=== PATIENT | male | born 1965 | race African-American/Black ===

== ENCOUNTER 2018-03-02 01:20 | Emergency (ER) | payer MEDICAID, SELFPAY ==
[2018-03-02 01:22] VITALS: BP 124/87; PULSE 83; RESP 18; TEMP 37; O2SAT 97; BMI 23.7
--- NOTE | 2018-03-02 02:50 | ED.DEP ---
ED Disposition - Plan for ED Patient: Chief Complaint: Laceration Instructions: ED Laceration All Referrals: Lavon Cadena MD [Primary Care Provider] -
[2018-03-02 02:58] VITALS: PULSE 60; RESP 12
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
== END 2018-03-02 02:59 | disposition home or self-care (01) ==
PROVIDERS: Emergency Provider Emergency Medicine; Family Provider Family Medicine; PCP Family Medicine
DX: S41.111A Laceration without foreign body of right upper arm, initial encounter (principal); X99.1XXA Assault by knife, initial encounter; Y93.89 Activity, other specified; Y92.009 Unspecified place in unspecified non-institutional (private) residence as the place of occurrence of the external cause; Y99.8 Other external cause status
CPT/HCPCS: 12002; 99284

== ENCOUNTER 2018-03-06 08:18 | Emergency (ER) | payer MEDICAID, SELFPAY ==
[2018-03-06 08:19] VITALS: BP 120/74; PULSE 76; RESP 16; TEMP 36.5; O2SAT 99; BMI 24.1
--- NOTE | 2018-03-06 08:28 | ED.DCSUM_ITS ---
- ER Visit Summary Date of Service: 03/06/18 Chief Complaint: Wound check History of Present Illness: The patient is a 53 M who sustained a laceration over his right arm 4 days ago and had it sutured in the emergency department resents with dehiscence that he noticed this morning. Physical Examination: Otherwise normal exam, his laceration is intact except for one edge which has 1 suture missing, underneath there is pink granulation tissue. There is no surrounding erythema or calor or any other source of infection. Emergency Department Course and Treatment: I discussed with the patient, at this time I cannot put another suture since the tissue underneath is granulating, he understands this wound care was explained we will re-bandages wound. He will be discharged in stable condition. Impression: Wound check Wound dehiscence This note was generated with [employer] dictation software. It may contain incorrect words, spelling, and punctuation that were not noted in review of the chart prior to signing ED Disposition - Plan for ED Patient: Disposition: Home or Assisted Living Chief Complaint: Laceration Instructions: Wound Care Referrals: Lavon Cadena MD [Primary Care Provider] - 2 Days for wound check
[2018-03-06 08:59] VITALS: BP 135/77; PULSE 82; RESP 16; O2SAT 98
== END 2018-03-06 08:59 | disposition home or self-care (01) ==
LOC: ED 08:52
PROVIDERS: Emergency Provider Emergency Medicine; Family Provider Family Medicine; PCP Family Medicine
DX: T81.33XA Disruption of traumatic injury wound repair, initial encounter (principal)
CPT/HCPCS: 99282

== ENCOUNTER 2018-03-11 09:46 | Emergency (ER) | payer MEDICAID, SELFPAY ==
[2018-03-11 09:46] VITALS: BP 111/75; PULSE 72; RESP 16; TEMP 36.6; O2SAT 98; BMI 23.7
--- NOTE | 2018-03-11 10:34 | ED.DCSUM_ITS ---
- ER Visit Summary Date of Service: 03/11/18 Chief Complaint: Suture removal History of Present Illness: The patient is a 53 M who presents for suture removal. Patient states he had sutures placed in a right arm laceration approximately 10 days ago. Patient states some of the sutures broke and came out by themselves. Patient denies any redness or swelling. Patient denies any fevers or chills. Patient states his tetanus is up-to-date. Physical Examination: Vital signs are stable. Patient is afebrile. Patient is in no acute distress. Skin is warm and dry. There is a healing laceration over the lateral aspect of the right upper arm. There is no discharge or drainage. There is no erythema or warmth noted. There are [address] Neurovascular exam is intact. The remaining physical exam is within normal limits. Emergency Department Course and Treatment: Sutures were removed without difficulty. Bacitracin dressing was applied. Patient was instructed to follow- up with his primary care physician in 7-10 days. Patient understood and was agreeable with the plan. All questions were answered. Disposition: Discharged home Impression: Healing laceration right arm This note was generated with [employer] dictation software. It may contain incorrect words, spelling, and punctuation that were not noted in review of the chart prior to signing ED Disposition - Plan for ED Patient: Disposition: Home or Assisted Living Chief Complaint: Wound Check Diagnosis: Visit for suture removal Instructions: ED Wound Check Sutr Remove No Infec Referrals: Lavon Cadena MD [Primary Care Provider] -
== END 2018-03-11 11:04 | disposition home or self-care (01) ==
PROVIDERS: Emergency Provider Emergency Medicine; Family Provider Family Medicine; PCP Family Medicine
DX: S41.111D Laceration without foreign body of right upper arm, subsequent encounter (principal); W26.9XXD Contact with unspecified sharp object(s), subsequent encounter; Z48.02 Encounter for removal of sutures; Z79.891 Long term (current) use of opiate analgesic; Z79.899 Other long term (current) drug therapy
CPT/HCPCS: 99283

== ENCOUNTER 2018-04-05 08:20 | Emergency (ER) | payer MEDICAID, SELFPAY ==
[2018-04-05 08:21] VITALS: BP 116/75; PULSE 94; RESP 16; TEMP 36.4; O2SAT 98; BMI 23.0
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
--- NOTE | 2018-04-05 08:51 | ED.DEP ---
ED Disposition - Plan for ED Patient: Disposition: Home or Assisted Living Chief Complaint: Laceration Instructions: ED Laceration All Referrals: Lavon Cadena MD [Primary Care Provider] -
[2018-04-05 08:57] VITALS: BP 118/76; PULSE 82; RESP 16; O2SAT 98
== END 2018-04-05 09:00 | disposition home or self-care (01) ==
PROVIDERS: Emergency Provider Emergency Medicine; Family Provider Family Medicine; PCP Family Medicine
DX: S71.012A Laceration without foreign body, left hip, initial encounter (principal); M19.90 Unspecified osteoarthritis, unspecified site; Z72.0 Tobacco use; Z79.899 Other long term (current) drug therapy; X99.1XXA Assault by knife, initial encounter; Y93.89 Activity, other specified; Y92.89 Other specified places as the place of occurrence of the external cause; Y99.8 Other external cause status
CPT/HCPCS: 12001; 99282

== ENCOUNTER 2018-04-15 19:12 | Emergency (ER) | payer MEDICAID, SELFPAY ==
[2018-04-15 19:13] VITALS: BP 115/75; PULSE 90; RESP 16; TEMP 36.3; O2SAT 96; BMI 24.1
[2018-04-15 19:24] VITALS: BP 120/74; PULSE 85; RESP 14; O2SAT 98
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
[2018-04-15 19:48] VITALS: RESP 18
== END 2018-04-15 19:48 | disposition home or self-care (01) ==
LOC: ED 19:45
PROVIDERS: Emergency Provider Emergency Medicine; Family Provider Family Medicine; PCP Family Medicine
DX: S31.114D Laceration without foreign body of abdominal wall, left lower quadrant without penetration into peritoneal cavity, subsequent encounter (principal); Z48.02 Encounter for removal of sutures; F32.9 Major depressive disorder, single episode, unspecified; Z72.0 Tobacco use; Z79.899 Other long term (current) drug therapy; X99.9XXD Assault by unspecified sharp object, subsequent encounter
CPT/HCPCS: 99282

== ENCOUNTER 2018-07-05 07:11 | Emergency (ER) | payer MEDICAID, SELFPAY ==
[2018-07-05 07:11] VITALS: BP 114/67; PULSE 92; RESP 18; TEMP 36.6; O2SAT 96; BMI 24.1
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
--- NOTE | 2018-07-05 07:56 | ED.RN ---
PT ELOPED FROM ER, DISPATCH NOTIFIED
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
== END 2018-07-05 07:56 | disposition left against medical advice (07) ==
LOC: ED 08:23
PROVIDERS: Emergency Provider Emergency Medicine; Family Provider Family Medicine; PCP Family Medicine
DX: R45.850 Homicidal ideations (principal)

== ENCOUNTER 2018-09-29 12:14 | Emergency (ER) | payer MEDICAID, SELFPAY ==
[2018-09-29 12:15] VITALS: BP 124/74; PULSE 97; RESP 17; TEMP 37; O2SAT 98; BMI 23.8
--- NOTE | 2018-09-29 14:55 | ED.RN ---
PT AMBULATES MULTIPLE TIMES FROM HALLWAY CHAIR OUT TO TRIAGE.
--- NOTE | 2018-09-29 14:55 | ED.VISSUMM ---
- ER Visit Summary Date of Service: 09/29/18 Chief Complaint: Back pain shoulder pain History of Present Illness: The patient is a 53 M presents with back pain and right shoulder pain for about 2 months. He could not follow-up with his primary care physician he does not have an appointment for another month. There is no fever chills no chest pain shortness of breath. Physical Examination: Otherwise unremarkable exam, his right shoulder shows tenderness over the supraspinatus region with tenderness with abduction greater than 90 degrees, his back pain is in the back of the shoulder, reproducible. Neurovascularly he is intact Patient will be treated with analgesics, muscle relaxant and discharged to follow-up with his PCP, he may need physical rehab Impression: [] Rotator cuff tendinitis Back pain This note was generated with [employer] dictation software. It may contain incorrect words, spelling, and punctuation that were not noted in review of the chart prior to signing ED Disposition - Plan for ED Patient: Disposition: Home or Assisted Living Instructions: ED Neck Back Pain General, Understanding Rotator Cuff Injuries Prescriptions: Naproxen [Naprosyn] 500 mg PO BID PRN #20 tab Tizanidine HCl 4 mg PO BID PRN #20 tab PRN Reason: Muscle Spasm Referrals: Lavon Cadena MD [Primary Care Provider] -
[2018-09-29 15:28] VITALS: PULSE 98; RESP 18
== END 2018-09-29 15:28 | disposition home or self-care (01) ==
PROVIDERS: Emergency Provider Emergency Medicine; Family Provider Family Medicine; PCP Family Medicine
DX: M75.81 Other shoulder lesions, right shoulder (principal); M54.89 Other dorsalgia; M06.9 Rheumatoid arthritis, unspecified; Z72.0 Tobacco use; Z79.899 Other long term (current) drug therapy
CPT/HCPCS: 99282

== ENCOUNTER → 2018-10-16 14:11 | Outpatient (CLI) | payer MEDICAID, SELFPAY ==
[2018-09-29 12:15] VITALS: BMI 23.8
--- NOTE | 2018-10-16 14:12 | RAD_ITS ---
STUDY: X-RAY - RIGHT SHOULDER REASON FOR EXAM: Male, 53 years old. Pain TECHNIQUE: 4 view(s) of the shoulder. COMPARISON: None. FINDINGS: There is mild degenerative arthrosis of the glenohumeral articulation. Normal acromioclavicular joint. Normal acromion. Normal humeral head and visualized proximal humerus. The soft tissue structures are unremarkable. Normal visualized pulmonary apex. RAD/Shoulder min 2 Views IMPRESSION: Glenohumeral arthrosis. Electronically Signed: Dheeraj Atkins MD at 16:08 EST , Service support ,
== END ==
PROVIDERS: Family Provider Family Medicine; PCP Family Medicine; Referring Provider Physician Assistant; Visit Provider Physician Assistant
DX: M25.511 Pain in right shoulder (principal)
CPT/HCPCS: 73030

== ENCOUNTER 2019-04-06 13:29 | Emergency (ER) | payer MEDICAID, SELFPAY ==
[2018-10-16 15:53] VITALS: BMI 23.8
[2019-04-06 13:30] VITALS: BP 96/81; PULSE 70; RESP 17; TEMP 36.7; O2SAT 98; BMI 24.5
--- NOTE | 2019-04-06 14:37 | RAD_ITS ---
STUDY: X-RAY - RIGHT SHOULDER REASON FOR EXAM: Male, 54 years old. Pain following injury. TECHNIQUE: 4 view(s) of the shoulder. COMPARISON: None. FINDINGS: Normal glenohumeral articulation. There is minimal widening of the AC joint suggesting a Type I acromioclavicular joint separation. Normal acromion. Normal humeral head and visualized proximal humerus. The soft tissue structures are unremarkable. Normal visualized pulmonary apex. RAD/Shoulder min 2 Views IMPRESSION: Type I AC joint injury. Electronically Signed: Leonardo Miranda, at 15:30 EDT , Service support ,
--- NOTE | 2019-04-06 14:43 | ED.VIS.GEN ---
History of Present Illness Chief Complaint: Upper Extremity Injury Informant: Patient Onset: Weeks Context: Gradual Onset Timing: Continuous Current Severity: Moderate Maximum Severity: Moderate Narrative: The patient presents to the emergency department with increasing right shoulder pain. Patient states he has a rotator cuff tear. He has seen orthopedics, had an MRI, and done physical therapy. He states that he is been on a muscle relaxer and gabapentin. Over the past month is gotten worse. He states over the past week, he had increasing pain and spasm mostly in his upper back. He states it hurts to move the shoulder and lifted over his head. He denies any definitive trauma. He denies any fevers or chills. He is otherwise been in his normal state of health. Prior similar symptoms: Yes Recent Illness/Hospitalization: No Past Medical History - Allergies and Home Meds Allergies/Adverse Reactions: Allergies No Known Allergies Allergy (Verified 04/06/19 13:30) Primary Care Physician: Phillip Tompkins MD [Primary Care Provider] - Prior records reviewed: Yes Surgical History: - - Spine surgery Smoking Status: Current some day smoker Alcohol: None - Family History Maternal Family History: Reports: Hypertension Review of Systems General: Denies: Chills, Fever, Sweats Eyes: Denies: Visual changes - bilaterally, Diplopia ENT: Denies: Rhinorrhea, Sore throat Cardiovascular: Denies: Chest pain, Palpitations Respiratory: Denies: Dyspnea, Cough, Dyspnea on exertion Gastrointestinal: Denies: Abdominal pain, Nausea, Vomiting, Diarrhea, Melena, Hematochezia Genitourinary: Denies: Dysuria, Hematuria, Frequency Musculoskeletal: Reports: Myalgias, Arthralgias. Denies: Back pain, Extremity Pain Skin: Denies: Rash, Wounds Neurological: Denies: Headache, Weakness, Numbness Physical Exam Vital Signs/Narrative: Vital Signs Temp Pulse Resp BP Pulse Ox 04/06/19 13:30 98.1 F 70 17 96/81 H 98 Inital Vital Signs reviewed: Yes General: Well nourished, Well developed, No Acute Distress Head: Normocephalic, Atraumatic Eyes: Perrl, EOMI ENT: Moist mucous membranes, No rhinorrhea Neck: Supple, Nontender Cardiovascular: Regular rate, Regular rhythm, No murmurs Respiratory: No distress, CTA bilaterally, Chest nontender Abdomen: Soft, Nontender, Nondistended, Normal bowel sounds Back: Nontender, Normal Inspection Extremities: Nontender, No edema Skin: Normal color, No rash Neurological: Alert, Oriented x3, Cranial nerves II-XII grossly intact, Normal Strength, Normal Sensation Psychological: Normal affect, Normal Mood Diagnostic/Tx/Re-eval Clinical Impression(s) from Imaging Studies Shoulder X-Ray 04/06/19 14:37 IMPRESSION: Type I AC joint injury. Electronically Signed: Leonardo Miranda, at 15:30 EDT , Service support , - Medical Decision Making Patient presents with increasing right shoulder pain. It is mostly in the posterior scapular muscles. My suspicion is that he is using these muscles to move the shoulder other than his rotator cuff given his underlying injury. His pulses are normal. His sensation is intact. I did repeat plain films which were unremarkable. At this point, the patient is already on antispasmodics. We will give him a short course of anti-inflammatories and outpatient orthopedic follow-up. Impression 1. Right shoulder strain ED Disposition - Plan for ED Patient: Instructions: Shoulder Sprain Prescriptions: Naproxen [Naprosyn] 500 mg PO BID #14 tab Prescription Printed Referrals: Phillip Tompkins MD [Primary Care Provider] -
[2019-04-06] MEDS: HYDROcodone Bitartrate/Apap 5/325 Tablet PO (15:37)
[2019-04-06 16:27] VITALS: RESP 16
--- NOTE | 2019-04-06 16:27 | ED.RN ---
REVIEWED D/C INSTRUCTIONS, FOLLOW UP CARE, PRESCRIPTION, AND S/S THAT WOULD WARRANT A RETURN TO THE ED WITH PT. PT VERBALIZED AN UNDERSTANDING AND DENIES FURTHER QUESTIONS FOR THIS RN. PT SKIN WARM/DRY, RESP EVEN AND UNLABORED, PT A&O X 3, NO DISTRESS NOTED. PT AMBULATED OUT OF ED, GAIT STEADY.
== END 2019-04-06 16:31 | disposition home or self-care (01) ==
LOC: ED 15:28
PROVIDERS: Emergency Provider Emergency Medicine; Family Provider Family Medicine; PCP Family Medicine
DX: S46.911A Strain of unspecified muscle, fascia and tendon at shoulder and upper arm level, right arm, initial encounter (principal); X58.XXXA Exposure to other specified factors, initial encounter; Y93.9 Activity, unspecified; Y92.9 Unspecified place or not applicable; F17.200 Nicotine dependence, unspecified, uncomplicated
CPT/HCPCS: 73030; 99283

== ENCOUNTER 2019-05-04 12:23 | Outpatient (RCR) | payer MEDICAID, SELFPAY ==
[2019-05-01 12:46] VITALS: BMI 24.5
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
--- NOTE | 2019-05-28 10:50 | HP.PT.NRP ---
HP - Discharge Summary (1) - Patient Information PURA MARTINEZ was seen in my office for initial evaluation on 05/04/19. The following Plan of Care was established for this patient: Initial Frequency: 2x /Week Initial Duration: 4 Weeks - Anticipated Interventions Patient/Client Instruction: Educate patient on: Condition, Plan of Care For the Purpose of:: To decrease pain Therapeutic Exercise to Include: Strength training, Endurance training, Body mechanics, Postural training, Active ROM, Scapular Strength/Stabilization For the Purpose of:: To improve performance and independence with ADL's Cryotherapy (ice pack, ice massage): Yes Thermo therapy (hot pack): Yes Ultrasound (thermal/non thermal): Yes This patient was last seen in our office . Pertinent comments regarding their Physical therapy will appear below: Pt. has not attended PT since initial evaluation, appropriate for D/C & return to MD for further evaluation as needed. At this point I will be discontinuing this patient from physical therapy. I would be happy to see this patient again in the future if found appropriate by the physician. Thank you! CRISTIANE CoughlinT
== END 2019-05-04 19:00 | disposition home or self-care (01) ==
LOC: PT 12:23
PROVIDERS: Family Provider Family Medicine; PCP Family Medicine; Visit Provider Physician Assistant
DX: M75.21 Bicipital tendinitis, right shoulder (principal)
CPT/HCPCS: 97035; 97161

== ENCOUNTER 2019-08-11 11:11 | Observation (INO) | payer MEDICAID, SELFPAY ==
[2019-05-01 12:46] VITALS: BMI 24.5
[2019-08-11 11:12] VITALS: BP 128/84; PULSE 63; RESP 18; TEMP 36.6; O2SAT 97; BMI 24.7
--- NOTE | 2019-08-11 11:42 | EKG12_ITS ---
Test Reason : ABD PAIN Blood Pressure : / mmHG Vent. Rate : 064 BPM Atrial Rate : 064 BPM P-R Int : 144 ms QRS Dur : 088 ms QT Int : 412 ms P-R-T Axes : 036 -07 029 degrees QTc Int : 425 ms Normal sinus rhythm Normal ECG Confirmed by ACE HAGAN, OMID ([id number]), makeup editor SHEREEN WILLIAMSON ([id number]) on 08/17/2019 11:50:45 AM Referred By: Brian Ohara Confirmed By:SUMMER BELLO MD
--- NOTE | 2019-08-11 11:43 | ED.DCSUM_ITS ---
History of Present Illness Chief Complaint: Abd Pain Informant: Patient - Abdominal Pain/Flank Pain Onset: Today Context: Sudden Onset Timing: Continuous Quality: Aching Location: Epigastric Worsened by: Nothing Relieved by: Nothing - Nausea/Vomiting/Emesis GI Symptom: Nausea. Negative for: Vomiting - Diarrhea/Melena/Hematochezia GI Symptom: Negative for: Diarrhea, Melena, Hematochezia Narrative: Patient is a 54-year-old male with history of rheumatoid arthritis, hyperlipidemia and degenerative disc disease presenting with epigastric abdominal pain. He states around 3 AM at woke him up from sleep. He states it is in his epigastric and periumbilical region. He denies any radiation. He had associated nausea but was unable to vomit. He states his bowel movements been normal. The pain is been constant and he decided come to the emergency room. He did not try any medications at home for the symptoms. He notes that he had some fried gizzards left out that he ate at 2 AM. He is not sure if this is what caused his symptoms. He did eat the fried desserts for dinner as well. He states once he had pain like this in the past and he thought it was from eating greasy ribs. This was years ago. He states he is never had endoscopy. He states he had normal bowel movements and denies any diarrhea or melena. He does have some pain in his left upper quadrant/lower ribs. He denies any associated chest pain. He denies associated shortness of breath or difficulty breathing. He denies any urinary symptoms. He denies any other complaints at this time. Patient does smoke cigarettes regularly and drinks about 3 tall boys every few days. He denies any liquor use. He did not drink last night. He denies any drug use. He denies any other complaints at this time. Past Medical History - Allergies and Home Meds Allergies/Adverse Reactions: Allergies No Known Allergies Allergy (Verified 08/11/19 11:15) Past Medical History: - - RA, DDD Surgical History: - - Spine surgery Smoking Status: Current some day smoker - Family History Maternal Family History: Reports: Hypertension Review of Systems General: Denies: Chills, Fever, Sweats Eyes: Denies: Visual changes - bilaterally, Diplopia ENT: Denies: Rhinorrhea, Sore throat Cardiovascular: Denies: Chest pain, Palpitations Respiratory: Denies: Dyspnea, Cough, Dyspnea on exertion Gastrointestinal: Reports: Abdominal pain, Nausea. Denies: Vomiting, Diarrhea, Melena, Hematochezia Genitourinary: Denies: Dysuria, Hematuria, Frequency Musculoskeletal: Denies: Back pain, Extremity Pain Skin: Denies: Rash, Wounds Neurological: Denies: Headache, Weakness, Numbness Physical Exam Vital Signs/Narrative: Vital Signs Temp Pulse Resp BP Pulse Ox 08/11/19 11:12 97.9 F 63 18 128/84 H 97 Inital Vital Signs reviewed: Yes General: Well nourished, Well developed, No Acute Distress Head: Normocephalic, Atraumatic Eyes: Perrl, EOMI ENT: Moist mucous membranes, No rhinorrhea Neck: Supple, Nontender Cardiovascular: Regular rate, Regular rhythm, No murmurs Respiratory: No distress, CTA bilaterally, Chest nontender Abdomen: Soft, Nondistended, Normal bowel sounds, Tender - RUQ, epigastric, Moise's sign Back: Nontender, Normal Inspection Extremities: Nontender, No edema Skin: Normal color, No rash Neurological: Alert, Oriented x3, Cranial nerves II-XII grossly intact, Normal Strength, Normal Sensation Psychological: Normal affect, Normal Mood Diagnostic/Tx/Re-eval US: RUQ, - - Acute cholecystitis Clinical Impression(s) from Imaging Studies Gallbladder Ultrasound 08/11/19 12:19 IMPRESSION: Multiple gallstones. There is a 2.1 cm 1.4 cm x 1.6 cm nonmobile stone in the neck of the gallbladder. Thickening gallbladder wall. Small amount of pericholecystic fluid. Electronically Signed: Leonardo Miranda, at 14:19 EST , Service support , Laboratory Data 08/11/19 08/11/19 08/11/19 11:25 11:25 12:40 WBC 6.8 RBC 4.87 Hgb 14.4 Hct 43.0 MCV 88.3 MCH 29.6 MCHC 33.5 RDW Std Deviation 46.2 H RDW Coeff of Magui 14.3 Plt Count 215 MPV 9.1 Immature Gran % (Auto) 0.300 Neut % (Auto) 72.8 H Lymph % (Auto) 19.6 [place] % (Auto) 4.3 Eos % (Auto) 2.9 Baso % (Auto) 0.1 Absolute Neuts (auto) 4.9 Absolute Lymphs (auto) 1.33 Nucleated RBC % 0 Sodium 138 Potassium 4.2 Chloride 107 Carbon Dioxide 29.0 Anion Gap 2 L BUN 23 H Creatinine 1.07 Estim Creat Clear Calc 85.62 Est GFR (MDRD) Af Amer 92 Est GFR (MDRD) Non-Af 76 BUN/Creatinine Ratio 21.5 H Glucose 106 Calcium 8.7 Total Bilirubin 0.60 Direct Bilirubin 0.11 AST 24 ALT 34 Alkaline Phosphatase 60 Troponin I < 0.015 Total Protein 8.0 Albumin 3.9 Globulin 4.1 Lipase 69 L Urine Color Yellow Urine Clarity Sl. Cloudy Urine pH 6.0 Ur Specific [place] 1.010 Urine Protein Negative Urine Glucose (UA) Normal Urine Ketones Negative Urine Occult Blood Negative Urine Nitrite Negative Urine Bilirubin Negative Urine Urobilinogen Normal Ur Leukocyte Esterase Negative Urine RBC 0 SEEN Urine WBC 0 SEEN Ur Squamous Epith Cells 0-5 SEEN Urine Bacteria 0 SEEN Urine Mucus 0 SEEN - Rhythm Strip Rhythm Strip: Sinus Rhythm Rate: 64 Ectopy: None - EKG Initial EKG Interpretation: Sinus Rhythm, - - Normal sinus rhythm at a rate of 64 Normal intervals Normal axis Normal ST segments - Medical Decision Making Patient is evaluated for epigastric pain that started around 3 AM. Is been quite constant. He has associated nausea and anorexia. Lab work is largely unremarkable. Because it in his epigastric region I did obtain EKG and troponin which are grossly normal. As patient had a Moise's sign on exam we did get an ultrasound to check for quadrant. This did show findings concerning for acute cholecystitis. Discussed with Dr. Oahra who admit the patient and evaluate for surgical management. Patient did require 2 doses of IV morphine in the emergency room for pain control. He is given a liter of fluid and started on maintenance fluid. Patient is stable while in the emergency room and stable for the general medical floor at time of disposition. ED Disposition - Plan for ED Patient: Diagnosis: Acute cholecystitis
[2019-08-11 11:53] LABS: Absolute Lymphocyte Count 1.33 X10^3/uL (0.83-4.51); Absolute Neutrophil Count 4.9 X10^3/uL (2.0-7.7); Basophil# 0.01 X10^3/uL; Basophil% 0.1 % (0-1); Eosinophils% 2.9 % (0-5); Hemoglobin 14.4 g/dL (13.0-16.5); Lymphocyte # 1.33 X10^3/ul (4.0); Lymphocyte % 19.6 % (19-41); Mean Corp Hgb Conc 33.5 g/dL (32-36); Mean Corpuscular Hgb 29.6 pg (27.0-32.0); Mean Corpuscular Volume 88.3 fL (80-94); Mean Platelet Vol. 9.1 fl (6.2-12.0); Monocyte# 0.29 X10^3/uL; Monocyte% 4.3 % (0-10); NRBC Flagged by Analyzer 0 % (0-5); Neutrophil # 4.94 X10^3/uL (2.7-7.7); Neutrophil % 72.8 % (47-70); Platelet Count 215 K/mm3 (150-450); RBC Distribution Width CV 14.3 % (11.6-14.6); RBC Distribution Width SD 46.2 fl (35.1-43.9); Red Blood Count 4.87 M/mm3 (4.6-6.2); White Blood Count 6.8 K/mm3 (4.4-11.0)
[2019-08-11] MEDS: 0.9% Normal Saline 1,000 ML 1000 ML IV (11:54)
[2019-08-11] MEDS: Morphine 4 MG/ML Syringe IV ×2 (11:55→14:50)
[2019-08-11] MEDS: Ondansetron 4 MG/2 ML Vial IV (11:55)
[2019-08-11 12:07] LABS: AST(SGOT) 24 U/L (15-37); Alanine Aminotransfer ALT/SGPT 34 U/L (16-61); Albumin, Serum 3.9 g/dL (3.2-5.0); Alkaline Phosphatase 60 U/L (45-117); Anion Gap 2 (5-15); BUN 23 mg/dL (7-18); BUN/Creat Ratio 21.5 RATIO (10-20); Bilirubin, Direct 0.11 mg/dL (0.00-0.30); Calcium,Total 8.7 mg/dL (8.5-10.1); Chloride 107 mmol/L (98-107); Creatinine, Serum 1.07 mg/dL (0.70-1.30); EST Glomerular Filtration Rate 76 mL/min (>60); Est Glom Filt Rate - Afr Amer 92 mL/min (>60); Estimated Creatinine Clearance 85.62 ml/min; Globulin 4.1 g/dL (2.2-4.2); Glucose 106 mg/dL (74-106); Lipase 69 U/L (73-393); Potassium 4.2 mmol/L (3.5-5.1); Sodium Level 138 mmol/L (136-145)
--- NOTE | 2019-08-11 12:19 | US_ITS ---
STUDY: ABDOMINAL ULTRASOUND - RIGHT UPPER QUADRANT REASON FOR VISIT: Male, 54 years old abdominal pain. TECHNIQUE: Ultrasound evaluation of the right upper quadrant was performed with real-time and static greenwood-scale imaging. TECHNICAL QUALITY: Limited. Examination limited by bowel gas. COMPARISON: None. FINDINGS: Liver: The liver measures 14.4 cm. There is normal echogenicity of the liver. The bile ducts are within normal limits. There is hepatic color flow. The direction of portal flow is hepatopetal. There is no demonstrated mass lesion. Gallbladder: Mildly distended gallbladder. The gallbladder wall is thickened and measures 5.5 mm. There is a positive sonographic Moise''s sign. There is pericholecystic fluid. There are multiple echogenic structures within the gallbladder, consistent with multiple gallstones. There is a 2.1 cm x 1.4 cm x 1.6 cm stone in the neck of the gallbladder. Common Bile Duct (C.B.D.): The common bile duct measures 2.8 mm. Pancreas: Normal size of the head, body and tail of the pancreas. There is normal echogenicity of the pancreas. There is no demonstrated pancreatic mass or cyst. Right Kidney: Normal size of the right kidney. The right kidney measures 9.3 cm x 6 cm x 6.2 cm. Normal renal cortex. The right cortex measures 1.8 cm. There is no demonstrated renal mass or cyst. There is no right hydronephrosis. US/Gallbladder IMPRESSION: Multiple gallstones. There is a 2.1 cm 1.4 cm x 1.6 cm nonmobile stone in the neck of the gallbladder. Thickening gallbladder wall. Small amount of pericholecystic fluid. Electronically Signed: Leonardo Miranda, at 14:19 EST , Service support ,
[2019-08-11 12:47] LABS: Bacteria 0 SEEN /hpf (None Seen); Mucous, Urine 0 SEEN /hpf (<or=2+); Red Blood Cells-Urine 0 SEEN /hpf (0-5); White Blood Cells 0 SEEN /hpf (0-5)
[2019-08-11 12:51] LABS: Color, Urine Yellow (Yellow); Glucose, Dipstick Normal (Normal); Ketone-Dipstick Negative (Negative); Leukocyte Esterase-Dipstick Negative /ul (Negative); Nitrite-Dipstick Negative (Negative); Occult Blood-Urine Negative /ul (Negative); Protein-Dipstick Negative (Negative); Urine Bilirubin Dipstick Negative (Negative); Urine Clarity Sl. Cloudy (Clear); Urine Urobilinogen Normal (Normal)
[2019-08-11 12:57] LABS: Squamous Epithelial Cells - UA 0-5 SEEN /hpf (0-5)
[2019-08-11 14:29] VITALS: BP 132/98; PULSE 75; RESP 16; O2SAT 99
--- NOTE | 2019-08-11 14:55 | NURSING ---
MED SURG OBS ACUTE CHOLECYSTITIS CHALO
[2019-08-11] MEDS: 0.9% Normal Saline 1,000 ML 150 ML IV (15:18)
[2019-08-11 15:19] VITALS: BMI 24.7
--- NOTE | 2019-08-11 17:10 | NURSING ---
DR ISABEL IN ROOM
[2019-08-11 17:48] VITALS: BMI 24.8
[2019-08-11 17:49] VITALS: BP 113/74; PULSE 61; RESP 16; TEMP 36.5; O2SAT 97
[2019-08-11] MEDS: Lactated Ringers 1,000 ML 100 ML IV (17:55)
[2019-08-11 18:02] LABS: Amphetamine Urine VISTA NEGATIVE (<1000 ng/mL); Barbiturate Urine VISTA NEGATIVE (< 200 ng/mL); Benzodiazepine Urine VISTA NEGATIVE (< 200 ng/mL); Cocaine Urine VISTA POSITIVE (< 300 ng/mL); Ecstacy Urine VISTA NEGATIVE (< 500 ng/mL); Methadone Urine VISTA NEGATIVE (< 300 ng/mL); PCP Urine VISTA NEGATIVE (< 25 ng/mL); THC Urine VISTA NEGATIVE (< 50 ng/mL); Vista UDS pH Range 6
--- NOTE | 2019-08-11 18:03 | HP.PCM_ITS ---
History of Present Illness Date of Admission: 08/11/19 Chief Complaint: upper abdominal pain The patient is a 54 year old M rated fatty meal last night and awoke at 2 AM with severe epigastric and right upper quadrant pain. The pain was waxing and waning and persisted. he presented to [facility] emergency room with these complaints. laboratory studies demonstrated normal white blood cell count with a mild left shift. Chemistry panel was unremarkable. right upper quadrant ultrasound demonstrated a mildly distended gallbladder with multiple gallstones mild pericholecystic fluid and a positive Moise sign. The common bile duct was normal at 2.8 mm. I was contacted for acute cholecystitis. The patient has no sitting past medical history.he has a history of an anterior cervical fusion in 2004. The patient notes no allergies to medications. he takes Neurontin minocycline Zoloft and trazodone. He admits to smoking marijuana and noted that he smoked marijuana which was lysed with cocaine 2 days previously.. Past Medical History Past Medical History (Chronic Problems): Chronic Problems Dyslipidemia (Chronic) Allergies No Known Allergies Allergy (Verified 08/11/19 11:15) Home Medications: Ambulatory Orders Medication Instructions Recorded Gabapentin [Neurontin] 300 mg PO TIDCM 02/23/15 Sertraline HCl 100 mg PO DAILY 08/11/19 traZODone [Desyrel] 50 mg PO QHS 08/11/19 Surgical History: - - Spine surgery Psychiatric History: No pertinent psych hx Smoking Status: Current some day smoker Tobacco Use: Cigarettes - *Family History Maternal History Items: Hypertension Review of Systems Constitutional: Denies: Chills, Fever, Weight Change HEENT: Denies: Head Aches, Sinus Congestion, Sinus Drainage Cardiovascular: Denies: Chest Pain, Palpitations Respiratory: Denies: Cough, Shortness of breath at rest, Sputum production Gastrointestinal: Reports: Abdominal Pain. Denies: Nausea, Vomiting Genitourinary: Denies: Dysuria Musculoskeletal: Denies: Joint Pain, Joint Tenderness Skin: Denies: Rash, Wounds Neurological: Denies: Numbness, Tingling, Focal weakness Psychiatric: Denies: Anxiety, Depression, Homicidal Ideations, Suicidal Ideations Hematologic/ Lymphatic: Denies: Easy Bruising, Easy Bleeding VTE Information - Inpt Only VTE Present on Admission: No VTE Mechan Device Prophylaxis: SCD's Patient Problems: Active and Suspected Problems Acute cholecystitis (Acute) - Physical Exam Vitals/I&O's: Vital Signs Temp Pulse Resp BP Pulse Ox 97.7 F L 61 16 113/74 97 08/11/19 17:49 08/11/19 17:49 08/11/19 17:49 08/11/19 17:49 08/11/19 17:49 Oxygen Delivery Method Room Air Weight: 83.098 kg Body Mass Index (BMI) 24.8 Intake and Output for Last 24 Hours 08/09/19 08/10/19 08/11/19 23:59 23:59 23:59 Intake Total 1000 / 1000 Balance 1000 / 1000 General: Alert, Oriented x3, Cooperative HEENT: Atraumatic, PERRLA, EOMI, Normocephalic, - - I slightly bloodshot Lungs: Clear to auscultation, Normal air movement Cardiovascular: Regular rate, No murmurs Abdomen: Bowel Sounds Present, Soft, Tender - right upper quadrant Laboratory Results 08/11/19 11:25: WBC 6.8, RBC 4.87, Hgb 14.4, Hct 43.0, MCV 88.3, MCH 29.6, MCHC 33.5, RDW Std Deviation 46.2 H, RDW Coeff of Magui 14.3, Plt Count 215, MPV 9.1, Immature Gran % (Auto) 0.300, Neut % (Auto) 72.8 H, Lymph % (Auto) 19.6, [place] % (Auto) 4.3, Eos % (Auto) 2.9, Baso % (Auto) 0.1, Absolute Neuts (auto) 4.9, Absolute Lymphs (auto) 1.33, Nucleated RBC % 0 08/11/19 11:25: Sodium 138, Potassium 4.2, Chloride 107, Carbon Dioxide 29.0, Anion Gap 2 L, BUN 23 H, Creatinine 1.07, Estim Creat Clear Calc 85.62, Est GFR (MDRD) Af Amer 92, Est GFR (MDRD) Non-Af 76, BUN/Creatinine Ratio 21.5 H, Glucose 106, Calcium 8.7, Total Bilirubin 0.60, Direct Bilirubin 0.11, AST 24, ALT 34, Alkaline Phosphatase 60, Troponin I < 0.015, Total Protein 8.0, Albumin 3.9, Globulin 4.1, Lipase 69 L 08/11/19 12:40: Urine Color Yellow, Urine Clarity Sl. Cloudy, Urine pH 6.0, Ur Specific [place] 1.010, Urine Protein Negative, Urine Glucose (UA) Normal, Urine Ketones Negative, Urine Occult Blood Negative, Urine Nitrite Negative, Urine Bilirubin Negative, Urine Urobilinogen Normal, Ur Leukocyte Esterase Negative, Urine RBC 0 SEEN, Urine WBC 0 SEEN, Ur Squamous Epith Cells 0-5 SEEN, Urine Bact eria 0 SEEN, Urine Mucus 0 SEEN 08/11/19 12:40: Urine Opiates Screen POSITIVE H, Urine Methadone Screen NEGATIVE, Ur Barbiturates Screen NEGATIVE, Ur Phencyclidine Scrn NEGATIVE, Ur Amphetamines Screen NEGATIVE, U Methamphetamin-MDMA NEGATIVE, U Benzodiazepines Scrn NEGATIVE, Urine Cocaine Screen POSITIVE H, U Cannabinoids Screen NEGATIVE, Ur Drug Screen Comment Current Medications Sodium Chloride () 1,000 mls @ 150 mls/hr IV .Q6H40M [facility] Last Admin: 08/11/19 15:18 Dose: 150 mls/hr Documented by: Lactated Ringer's () 1,000 mls @ 100 mls/hr IV .Q10H [facility] Last Admin: 08/11/19 17:55 Dose: 100 mls/hr Documented by: Cefazolin Sodium 2 gm/ Sodium (Chloride) 120 mls @ 240 mls/hr IV SEND TO OR W/PATIENT ONE Stop: 08/11/19 17:48 Morphine Sulfate () 1 - 3 mg IV Q1H PRN PRN PRN Reason: Pain Score 4-10/10 Ondansetron HCl (Zofran) 4 mg IV Q8H PRN PRN PRN Reason: NAUSEA Oxycodone HCl (Oxyir) 5 - 10 mg PO Q4H PRN PRN PRN Reason: Pain Score 1-10/10 Sodium Chloride () 10 - 40 ml IV UD PRN PRN Reason: SALINE FLUSH Assessment/Plan All Active Problems Acute cholecystitis (Acute) clinical and ultrasonographic acute cholecystitis I plan to perform a laparoscopic cholecystectomy with intraoperative glandular Russel. The patient stands the risks, benefits, complications and possible alternatives to surgical intervention and consents to the planned surgical procedure. Patient will be made nothing by mouth prior to surgery. He will receive 2 g of Ancef perioperatively. We will send urine toxicology screen given his recent substance use to assess if there are any additional substances he did not know he had been consuming.
[2019-08-11 23:45] VITALS: BP 124/75; PULSE 66; RESP 16; TEMP 36.3; O2SAT 100
[2019-08-11 23:49] VITALS: RESP 18; O2SAT 97
[2019-08-11] MEDS: Morphine 2 MG/ML Syringe IV (23:57)
[2019-08-12] VITALS (12 sets, daily range): BP systolic 110–131; BP diastolic 76–101; PULSE 68–88; RESP 16–18; TEMP 36.4–37.7; O2SAT 95–100; BMI 24.8
[2019-08-12] MEDS: Lactated Ringers 1,000 ML 100 ML IV ×2 (04:09→13:35)
[2019-08-12] MEDS: Morphine 2 MG/ML Syringe IV (05:33)
[2019-08-12 06:09] LABS: Absolute Lymphocyte Count 1.72 X10^3/uL (0.83-4.51); Absolute Neutrophil Count 2.8 X10^3/uL (2.0-7.7); Basophil# 0.01 X10^3/uL; Basophil% 0.2 % (0-1); Eosinophil# 0.03 X10^3/uL; Eosinophils% 0.6 % (0-5); Hematocrit 37.3 % (40-54); Hemoglobin 12.7 g/dL (13.0-16.5); Lymphocyte # 1.72 X10^3/ul (4.0); Lymphocyte % 33.9 % (19-41); Mean Corpuscular Hgb 29.7 pg (27.0-32.0); Mean Corpuscular Volume 87.4 fL (80-94); Mean Platelet Vol. 9.2 fl (6.2-12.0); Monocyte# 0.53 X10^3/uL; Monocyte% 10.5 % (0-10); NRBC Flagged by Analyzer 0 % (0-5); Neutrophil # 2.77 X10^3/uL (2.7-7.7); Neutrophil % 54.6 % (47-70); Platelet Count 196 K/mm3 (150-450); RBC Distribution Width CV 14.1 % (11.6-14.6); RBC Distribution Width SD 45.4 fl (35.1-43.9); Red Blood Count 4.27 M/mm3 (4.6-6.2); White Blood Count 5.1 K/mm3 (4.4-11.0)
[2019-08-12 06:52] LABS: AST(SGOT) 19 U/L (15-37); Alanine Aminotransfer ALT/SGPT 27 U/L (16-61); Albumin, Serum 3.2 g/dL (3.2-5.0); Alkaline Phosphatase 51 U/L (45-117); Anion Gap 4 (5-15); BUN 16 mg/dL (7-18); Bilirubin, Direct 0.22 mg/dL (0.00-0.30); Calcium,Total 8.3 mg/dL (8.5-10.1); Chloride 112 mmol/L (98-107); Creatinine, Serum 1.07 mg/dL (0.70-1.30); EST Glomerular Filtration Rate 76 mL/min (>60); Est Glom Filt Rate - Afr Amer 92 mL/min (>60); Estimated Creatinine Clearance 85.62 ml/min; Globulin 3.1 g/dL (2.2-4.2); Glucose 85 mg/dL (74-106); Potassium 3.7 mmol/L (3.5-5.1); Protein, Total 6.3 g/dL (6.4-8.2); Sodium Level 142 mmol/L (136-145)
--- NOTE | 2019-08-12 08:51 | NURSING ---
report called to JULIANE Dong in AC for pre-op
--- NOTE | 2019-08-12 10:05 | CASEMGMT ---
Addendum entered by Ella Brady 08/12/19 13:42: Pt finally back on floor from procedure. SW met with pt and introduced self and role at [facility]. Pt is alert and orientated x3. Pt has guest present in room and pt gave permission for this worker to speak to him in front of his guest. Pt confirms to using marijuana laced with cocaine. Pt states that he has it arranged to go to [facility] in [place] at discharge. Pt denied additional needs or concerns at this time. Addendum entered by Ella Brady 08/12/19 13:03: SW again attempted to meet with pt, pt still off floor for procedure. Original Note: Social Work Note SW attempted to see pt as pt tested positive for cocaine. Pt currently off floor for procedure, SW will follow up with pt as time allows. Ella Brady FURNACE WORKER, MANUFACTURING MAINTENANCE TECHNICIAN
[2019-08-12] MEDS: Cefazolin 2 GM in 0.9% Normal Saline 100 ML IV (10:12)
--- NOTE | 2019-08-12 10:20 | RAD_ITS ---
STUDY: INTRAOPERATIVE CHOLANGIOGRAM. REASON FOR EXAM: Male, 54 years old. Laparoscopic cholecystectomy. FLUOROSCOPY TIME (if supplied): ( 8 seconds ) minutes/seconds. A cine loop consisting of 43 frames was obtained. TECHNIQUE: Intraoperative Cholangiogram was performed by the surgeon. Imaging was submitted. COMPARISON: None. FINDINGS: The visualized intrahepatic ducts are unremarkable. The common bile duct is not dilated. No intraluminal filling defect is seen. There is free flow of contrast into the duodenum. RAD/Cholangiogram/ O R,Initial IMPRESSION: Unremarkable intraoperative cholangiogram. Electronically Signed: Leonardo Miranda, at 9:42 EST , Service support ,
--- NOTE | 2019-08-12 10:30 | GALL_PTH ---
PATIENT: PURA MARTINEZ LOC: MS3 U#:[id number] AGE/SX: 54/M ROOM: MS319 RE08/11/[address]: Dr. Brian Ohara MD : 1965 BED: 1 DIS: 08/13/2019 SPEC #: [id number] RECD: 08/12/19 16:59 STATUS: GAYATRI REQ #: [id number] CHANDAN: 08/12/19 10:[address]: Brian Ohara DEPT: SURGICAL PATHOLOGY RECD BY: Jd Freed ENTERED: 08/13/19 08:59 SP TYPE: RAFAELA CASTREJON DR: Dr. Phillip Tompkins MD Tissues: Gallbladder, NOS Procedures: Surgery Specimen Level III HEADER OPERATION: Laparoscopic cholecystectomy with IOC PRE-OP DIAGNOSIS: Cholecystitis TISSUE SUBMITTED: Gallbladder MICROSCOPIC DIAGNOSIS Gallbladder, cholecystectomy: Chronic hemorrhagic and ulcerated cholecystitis and cholelithiasis. Reactive epithelial changes. SJ:june 08/14/19 MICROSCOPIC DESCRIPTION Slides are reviewed. GROSS DESCRIPTION Received is one container labeled with the patient's name and designated gallbladder. The specimen consists of a gallbladder measuring 11 cm in length and 4 cm in diameter. The external surface is pink-long, smooth and glistening for the most part. Focally it is granular, hemorrhagic and contains cautery artifact. The gallbladder contains brownish, hemorrhagic mucoid bile and two yellow, rough surface, round stones each measuring 2 cm in greatest dimension. The mucosa is bile-stained and without any mass lesions. The gallbladder wall measures up to 0.5 cm in thickness. Concrete Puddler sections from the gallbladder and the cystic duct are submitted in one cassette. / SJ:rg 08/13/19 TC:3 [facility]: [id number]
--- NOTE | 2019-08-12 11:36 | OP.PCM_ITS ---
Report of Operation Date of Procedure: 08/12/19 Pre-Operative Diagnosis: acute cholecystitis Post-Operative Diagnosis: acute cholecystitis, normal IOC Surgery/Procedure Performed:: laparoscopic cholecystectomy with intraoperative cholangiogram psychology fellow: herminia Type of Anesthesia:: General Anesthesiologist: Bienvenido Butts - ASA3 Specimen's removed: gallbladder Estimated Blood Loss (mL): 100 Fluids Replaced: 1200 Description of Procedure: The patient was brought to the operating suite. Sign in was performed verifying patient, site, position, SCIP antibiotic prophylaxis- 2 gm of Ancef and DVT prophylaxis with SCDs. Following induction of general anesthetic. The patient?s abdomen was prepped and draped in the usual fashion. Timeout was performed verifying patient, site, position. Local anesthetic was injected below the umbilicus. Incision made and dissection carried down to the umbilical root fascia. 2 stay sutures were placed. Incision made in the fascia, the peritoneum entered under direct visualization. A 10 mm Grewal trocar was inserted and secured with the stay sutures. Pneumoperitoneum to 15 mmHg was insufflated. Visual inspection revealed grossly distended edematous gallbladder. 3 right upper quadrant 5 ports were placed in the standard position. a large aspiration was inserted and used to aspirate the gallbladder to allow it to be grasped. The gallbladder was grasped retracted upward and outward. Dissection was carried out in Calot?s triangle. When a critical view of the neck of the gallbladder funneling of the cystic duct with no signs of aberrant ductal structures were seen, a clip was placed on the neck of the gallbladder cystic duct junction. A partial ductotomy was made. A Cholangiocath was inserted into the duct and secured with a clip. Intraoperative cholangiogram was performed demonstrating filling of the cystic duct filling the common bile duct and emptying into the duodenum without signs of obstruction area and the clip and catheter were removed. 2 clips placed on the cystic duct and the cystic duct divided. Dissection was continued until the cystic artery was clearly dissected and identified. The artery was then doubly clipped proximally singly clipped distally and divided. The gallbladder was then dissected free from the gallbladder fossa using electrocautery. The gallbladder was placed in an Endobag and removed through the umbilical port site. An 0 PDS [id number] suture was placed around the umbilical port site defect. Pneumoperitoneum was reestablished. The gallbladder fossa was checked for hemostasis. With good hemostasis, the area was irrigated and aspirated to clear. 5mm ports were removed under direct visualization with no signs of bleeding. Pneumoperitoneum was released. The Grewal trocar was removed. The umbilical fascial suture was secured area did skin was closed with interrupted 4-0 Monocryl subcuticular sutures. Steri-Strips and bandages were applied. The patient was brought to recovery room in stable condition. - Admit VTE Documentation VTE Present on Admission: No VTE Mechan Device Prophylaxis: SCD's VTE Pharm Prophylaxis ordered?: No
[2019-08-12] MEDS: Bupivacaine Mpf 0.5% 30 ML VIAL (11:39)
--- NOTE | 2019-08-12 11:44 | DCINST_ITS ---
Discharge Diet: Light diet - advance as tolerated Discharge Activity: May Not Drive - for 2-3 days or while taking narcotic pain medications., - - Do not drive, work heavy equipment or sign legal documents for 24 hours. May shower in (days): 1 - with the bandage in place. Additional Activity Instructions:: Pain medication may cause nausea. You should typically eat light foods as you take your pain medications. Pain medication may also cause constipation. If this is a problem for you, please discuss with your doctor. Call your doctor if your incision/area has: Continuous Slow Oozing, Sudden Increased Bleeding, Increased Pain/ Swelling, Increased Redness, Foul Smelling Discharge Call your doctor if you observe: Fever of 101 or Higher Suture Line Care: Avoid Pulling/Pushing, Avoid Pinching/Bending Additional Dressing/Incision Instructions:: Leave operative bandaids on for 2 days. When you remove dressing, leave Steri-Strips on until your follow-up appointment, or until the Steri-Strips fall off on their own. Allergies/Adverse Reactions: Allergies No Known Allergies Allergy (Verified 08/11/19 11:15) Medications to take at Discharge Gabapentin [Neurontin] 300 mg PO TIDCM 02/23/15 Sertraline HCl 100 mg PO DAILY 08/11/19 traZODone [Desyrel] 50 mg PO QHS 08/11/19 Oxycodone [Oxyir] 5 - 10 mg PO Q4H PRN PRN 4 Days #8 tab 08/12/19 The following prescriptions were given: Oxycodone [Oxyir] 5 - 10 mg PO Q4H PRN PRN 4 Days #8 tab PRN Reason: Pain Score 1-10/10 Prescription Printed Primary Care Physician: Phillip Tompkins MD [Primary Care Provider] - Test Results: Test results from this visit will be discussed in further detail at your follow- up appointment, if applicable. Please Follow Up With: Brian Ohara MD - Please call [phone] to schedule an appointment. When: 7 days after your surgery
[2019-08-12] MEDS: oxyCODONE 5 MG Tablet PO ×2 (13:35→20:22)
--- NOTE | 2019-08-12 14:39 | CHAPLAIN ---
Type of Pastoral Visit _x__ Initial Visit ___ Follow-up Visit ___ On-call Visit ___ General Patient Visit ___ Spiritual Assessment ___ Family Conference ___ Bereavement ___ Rapid Response ___ Code Blue ___ Other (describe below) Pastoral Care Referral From _x__ Patient ___ Family ___ Nurse ___ Physician ___ Engagement Mgr ___ Slot Floor Person ___ Other (describe below) Sacrament/Intervention ___ Active listening ___ Anointing ___ Anabaptist ___ Bereavement ___ Communion ___ Wen exploration ___ ___ Life review ___ Prayer ___ Reconciliation ___ Sacrament of Sick _x__ Supportive presence ___ Wedding ___ Other (describe below) Pastoral Comments patient was just coming back into room from procedure; pt was offered support; pt was asked about contacting his congregational in reference to his admission questionnaire; pt states that his congregational knows now that he is admitted
--- NOTE | 2019-08-12 22:33 | NURSING ---
pt pulled out iv on accident, taking po without difficulty and plans to go home in am when his ride can pick him up, refused iv restart.
[2019-08-13 01:45] VITALS: BP 116/79; PULSE 75; RESP 16; TEMP 36.9; O2SAT 99
[2019-08-13] MEDS: oxyCODONE 5 MG Tablet PO (06:42)
[2019-08-13 06:46] LABS: Absolute Lymphocyte Count 1.37 X10^3/uL (0.83-4.51); Absolute Neutrophil Count 3.8 X10^3/uL (2.0-7.7); Basophil# 0.01 X10^3/uL; Basophil% 0.2 % (0-1); Eosinophil# 0.01 X10^3/uL; Eosinophils% 0.2 % (0-5); Hematocrit 36.9 % (40-54); Hemoglobin 12.6 g/dL (13.0-16.5); Lymphocyte # 1.37 X10^3/ul (4.0); Mean Corp Hgb Conc 34.1 g/dL (32-36); Mean Corpuscular Hgb 29.9 pg (27.0-32.0); Mean Corpuscular Volume 87.6 fL (80-94); Mean Platelet Vol. 9.2 fl (6.2-12.0); Monocyte# 0.54 X10^3/uL; Monocyte% 9.5 % (0-10); NRBC Flagged by Analyzer 0 % (0-5); Neutrophil # 3.75 X10^3/uL (2.7-7.7); Neutrophil % 65.7 % (47-70); Platelet Count 195 K/mm3 (150-450); RBC Distribution Width CV 13.9 % (11.6-14.6); RBC Distribution Width SD 44.7 fl (35.1-43.9); Red Blood Count 4.21 M/mm3 (4.6-6.2); White Blood Count 5.7 K/mm3 (4.4-11.0)
[2019-08-13 07:02] LABS: ALB/GLOB Ratio 0.9 RATIO (0.9-2.4); AST(SGOT) 34 U/L (15-37); Alanine Aminotransfer ALT/SGPT 36 U/L (16-61); Albumin, Serum 2.9 g/dL (3.2-5.0); Alkaline Phosphatase 51 U/L (45-117); Anion Gap 6 (5-15); BUN 12 mg/dL (7-18); BUN/Creat Ratio 10.9 RATIO (10-20); Calcium,Total 8.1 mg/dL (8.5-10.1); Chloride 111 mmol/L (98-107); EST Glomerular Filtration Rate 74 mL/min (>60); Est Glom Filt Rate - Afr Amer 89 mL/min (>60); Estimated Creatinine Clearance 83.28 ml/min; Globulin 3.4 g/dL (2.2-4.2); Glucose 89 mg/dL (74-106); Potassium 3.6 mmol/L (3.5-5.1); Protein, Total 6.3 g/dL (6.4-8.2); Sodium Level 144 mmol/L (136-145)
[2019-08-13 08:30] VITALS: BP 124/78; PULSE 85; RESP 16; TEMP 36.8; O2SAT 98
== END 2019-08-13 08:54 | disposition home or self-care (01) ==
LOC: ED 14:52 → MS3 08-12 06:56
PROVIDERS: Emergency Medicine; Admitting Provider Surgery; Emergency Provider Emergency Medicine; Family Provider Family Medicine; PCP Family Medicine; Referring Provider Surgery; Visit Provider Surgery
PROC: (CPT 47610; principal; 2019-08-12 10:15)
DX: K80.12 Calculus of gallbladder with acute and chronic cholecystitis without obstruction (principal); M06.9 Rheumatoid arthritis, unspecified; E78.5 Hyperlipidemia, unspecified; F17.210 Nicotine dependence, cigarettes, uncomplicated; Z79.899 Other long term (current) drug therapy; F31.9 Bipolar disorder, unspecified
CPT/HCPCS: 47563; 36415; 74300; 76000; 76705; 80048; 80053; 80076; 80307; 81001; 83690; 84484; 85025; 88304; 93005; 96361; 96374; 96375; 96376; 99218; 99251; 99284; 99406; J7030; J7120; A4216; G0378; G0463; J2405